=== PATIENT | female | born 1950 | race Caucasian/White ===

== ENCOUNTER 2018-03-15 14:37 | Outpatient (CLI) | payer MEDICARE ==
--- NOTE | 2018-03-15 17:48 | XRAY Report ---
Reason: RT FOOT PAIN Procedure Date: 03/15/2018 Accession Number: [id number] / [id number] Procedure: XR - Foot 3 View RT CPT Code: FULL RESULT: EXAM: RIGHT FOOT RADIOGRAPHY EXAM DATE: 03/15/2018 02:47 PM. CLINICAL HISTORY: Right foot pain COMPARISON: None. TECHNIQUE: 3 views. FINDINGS: Bones: No evidence of acute fracture. There are areas of geographic lucency within the distal aspect of the first metatarsal, possibly subchondral cysts. Joints: No evidence of dislocation. There are moderate degenerative changes at the first metatarsophalangeal joint. Soft Tissues: No unexpected soft tissue findings. IMPRESSION: 1. No evidence of acute fracture or dislocation. 2. There are moderate degenerative changes at the first metatarsophalangeal joint. [facility]
== END 2018-03-15 14:38 | disposition home or self-care (01) ==
LOC: DI 14:37
PROVIDERS: ATTEND Physician Assistant
DX: M19.071 Primary osteoarthritis, right ankle and foot (principal)